=== PATIENT | male | born 2000 | race Caucasian/White ===

== ENCOUNTER 2019-05-23 18:32 | Emergency (ER) | payer OTHER, SELFPAY ==
[2019-05-23 19:24] VITALS: BP 171/118; PULSE 101; RESP 18; TEMP 36.5; O2SAT 98; BMI 59.3
--- NOTE | 2019-05-23 19:29 | HMH.EDUTC ---
[facility] [place] Disposition Clinical Impression: Influenza, Vomiting and diarrhea Disposition: Home, Self-Care Condition on Discharge: Good Instructions: How to Avoid a Cold or Flu, Influenza, Diarrhea, DI for Influenza -- Adult, DI for Vomiting -- Adult Additional Instructions: ? Start Tamiflu today if you are going to take it. Discussed risk and possible benefits. ? Lots of rest ? Increase Fluids water, Gatorade, powerade, pedialyte,if /toddler/child ? Alternate Tylenol and / or ibuprofen as discussed for fever, aches, chills x 24 hours without medication for symptoms ? Follow up IMMEDIATELY with your family doctor for new or worsening Symptoms OR no noticeable improvement over the next 48-72 hours, 911 for difficulty or breathing ? You or your child area contagious until no fever, aches, chills for 24 hours with medication for symptoms Prescriptions: Ondansetron [Zofran 4mg ODT] 4 mg PO Q8HP PRN #20 tab.rapdis PRN Reason: Nausea Transmission Status: Received by [facility] Oseltamivir Phosphate [Tamiflu 75mg Capsule] 75 mg PO BID #10 cap Transmission Status: Received by [facility] Referrals: Jairo Hahn MD [Primary Care Provider] - As needed Time of Disposition: 19:56 Medical Decision Making - Federico Inquiry Pt receiving controlled substance: No Federico was queried for this patient: No Vital Signs: 05/23/19 19:24 05/23/19 20:00 Temperature 97.7 F Temperature Source Oral Pulse Rate [Radial] 101 H 90 Respiratory Rate 18 Blood Pressure [Right Arm] 171/118 H 166/93 H Blood Pressure Mean [Right Arm] 135 117 Blood Pressure Source [Right Arm] Automatic Cuff Blood Pressure Position [Right Arm] Sitting 02 Sat by Pulse Oximetry 98 99 Oxygen Delivery Method Room Air - Lab Data Lab results reviewed: Yes: I reviewed the patient's lab results. Lab Results 05/23/19 19:11: Influenza Type A Ag Positive A, Influenza Type B Ag Negative - Reevaluation(s) Time: 19:54 Reevaluation #1: No vomiting after medication, States that nausea improved no diarrhea since arrival [facility] [place] HPI - General Stated complaint: v/d Time Seen by Provider: 05/23/19 19:29 Mode of Arrival: Ambulatory Source of Information: Patient Limitations: No Limitations Description of Symptoms (Recalled from Triage Doc. by RN): VOMITING, DIARRHEA HEENT Symptoms (Recalled from RN notes): No Resp Symptoms (Recalled from RN notes): No Skin Symptoms (Recalled from RN notes): No MS Symptoms (Recalled from RN notes): No Functional Status (Recalled from RN notes): WNL - History of Present Illness Provider Complaint: Patient states that he has been having vomiting and diarrhea body aches, chills and feeling ill States that he thought he may have had the flu a couple weeks ago State that son had the flu and now he has been having body aches, chills vomiting and diarrhea since last night - Related Data Previous Rx's Medication Instructions Recorded Ondansetron [Zofran 4mg ODT] 4 mg PO Q8HP PRN #20 tab.rapdis 05/23/19 Oseltamivir Phosphate [Tamiflu 75 mg PO BID #10 cap 05/23/19 75mg Capsule] Allergies Allergy/AdvReac Type Severity Reaction Status Date / Time No Known Allergies Allergy Verified 07/09/18 19:42 - Worker's Comp Is this a Worker's Comp case?: No [facility] History - Hepatitis A Screen Drug use history?: No High risk sexual behaviors?: No History of sexually transmitted infection?: No Currently employed?: No Childcare worker?: No Do you have indoor plumbing?: Yes Do you have electricity?: Yes Attestation statement:: This patient has been screened for Hepatitis A risk factors. I have reviewed the patient's past medical history: Yes Medical History: Reports:: MRSA Denies:: Diabetes Mellitus Type 1, Diabetes Mellitus Type 2 Laterality Cases: Bilateral: Myringotomy (Ear Tubes), Tonsillectomy - Social History Alcohol Intake: never Occupational Status: unemployed Housing: house
[2019-05-23 19:38] LABS: UTC Influenza A Antigen Positive (Negative); UTC Influenza B Antigen Negative (Negative)
[2019-05-23 20:00] VITALS: BP 166/93; PULSE 90; O2SAT 99
[2019-05-23 20:23] VITALS: BP 166/93; PULSE 90; RESP 18; TEMP 36.5; O2SAT 99
== END 2019-05-23 20:25 | disposition home or self-care (01) ==
PROVIDERS: Emergency Provider Nurse Practitioner; PCP Family Medicine
DX: J10.1 Influenza due to other identified influenza virus with other respiratory manifestations (principal)
CPT/HCPCS: 87804; 96372; 99202

== ENCOUNTER 2025-04-21 20:46 | Emergency (ER) | payer BC, OTHER, SELFPAY ==
[2025-04-21 21:15] VITALS: BP 167/100; PULSE 100; RESP 20; TEMP 36.7; O2SAT 95; BMI 53.2
--- NOTE | 2025-04-21 21:21 | PC.NURSE ---
Pt awake alert and oriented Skin pink warm and dry Resp full and easy Specch clear and appropriate IV site without redness and edema. Abd rounded and soft +bowel sounds x 4
--- NOTE | 2025-04-21 21:22 | CT_ITS ---
PROCEDURE INFORMATION: Exam: CT Abdomen And Pelvis With Contrast Exam date and time: 04/21/2025 9:29 PM Age: 24 years old Clinical indication: Abdominal pain; Epigastric; Additional info: Epigastric/ruq pain, cholecystitis? TECHNIQUE: Imaging protocol: Computed tomography of the abdomen and pelvis with contrast. Radiation optimization: All CT scans at this facility use at least one of these dose optimization techniques: automated exposure control; mA and/or kV adjustment per patient size (includes targeted exams where dose is matched to clinical indication); or iterative reconstruction. Contrast material: ISOVUE; Contrast volume: 75 ml; Contrast route: IV; COMPARISON: CT - ABDPELWO CT abdomen pelvis wo con 07/09/2018 7:59 PM FINDINGS: Liver: Fatty liver and hepatomegaly Gallbladder and biliary ducts: Normal. No calcified stones. No ductal dilation. Pancreas: Normal. No ductal dilation. Spleen: Normal. No splenomegaly. Adrenal glands: Normal. No mass. Kidneys and ureters: Normal. No hydronephrosis. Stomach and bowel: Unremarkable. No obstruction. No mucosal thickening. Appendix: No evidence of appendicitis. Intraperitoneal space: Unremarkable. No free air. No significant fluid collection. Vasculature: Unremarkable. No abdominal aortic aneurysm. Lymph nodes: Unremarkable. No enlarged lymph nodes. Urinary bladder: Unremarkable as visualized. Reproductive: Unremarkable as visualized. Bones/joints: Unremarkable. No acute fracture. Soft tissues: Unremarkable. IMPRESSION: No acute findings.
--- NOTE | 2025-04-21 21:24 | HMH.EDGENADL ---
Discharge Plan Disposition Patient Disposition: Home, Self-Care Prescriptions Prescriptions: New ondansetron HCl 4 mg tablet 4 mg PO Q8H PRN (Reason: nausea and vomiting) 5 Days Qty: 30 0RF No Action oseltamivir 75 MG capsule 75 mg PO BID Qty: 10 0RF ondansetron 4 MG tablet,disintegrating 4 mg PO Q8HP PRN (Reason: Nausea) Qty: 20 0RF Referrals Follow up/Referrals: Jairo Hahn MD [Primary Care Provider, Medical] - See instructions Vincent Milton MD [Staff Physician, General Surgery] - See instructions Activity Restrictions/Add. Instructions Additional Instructions/Restrictions: Consider following up with your PCP or our general surgery team for further evaluation of your recurrent abdominal pain episodes. Please follow-up with your primary care provider. Please return to the emergency department if you develop any new or worsening symptoms or become concerned for your health. Clinical Impressions Clinical Impression: Acute upper abdominal pain, Nausea & vomiting Instructions Patient Instructions: DI for Acute Abdominal Pain Print Language Print Language: Bahraini Discharge ED Provider: Yves Mayer General Adult HPI <Joey Sidhu MD - Last Filed: 04/21/25 23:49> General Chief complaint: Abdominal Pain Stated complaint: abdominal pain Time Seen by Provider: 04/21/25 21:17 Mode of Arrival: Ambulatory Source of Information: Patient Description of Symptoms (Recalled from ER Triage Doc. by RN): diffuse abdoiminal pain since 1700 History of Present Illness HPI narrative: Solomon Savage is a 24-year-old male presents to the emergency department for complaints of right upper quadrant epigastric pain that began yesterday and worsened today. He reports nausea but no vomiting. Reports chronic intermittent diarrhea but no changes to his stool recently. No urinary symptoms or changes in his urine color. He describes the pain is constant. He noted that he was told that he had gallbladder issues in the past that flared up after he ate [employer]. He did eat fast food today and noted that his pain got worse for short time after. He is taking medication to help with gas pains but states that that has not helped. Related Data Previous Rx's ?Medication ?Instructions ?Recorded ondansetron 4 mg disintegrating 4 mg PO Q8HP PRN Nausea ##20 05/23/19 tablet oseltamivir 75 mg capsule 75 mg PO BID #10 caps 05/23/19 ondansetron HCl 4 mg tablet 4 mg PO Q8H PRN nausea and 04/22/25 vomiting 5 days #30 tabs Allergies Allergy/AdvReac Type Severity Reaction Status Date / Time No Known Allergies Allergy Verified 07/09/18 19:42 [facility] <Joey Sidhu MD - Last Filed: 04/21/25 23:49> [facility] Disclaimer: The information contained in this section may have been updated after the patient was seen, as this information can be updated by other users. Social History Smoking Status: Never smoker alcohol intake: never current occupational status: unemployed Travel in the last 8 weeks?: None household members: family housing: house Have you lived/traveled outside US in past 30 days?: No Contact w/someone who lives/traveled outside US past 30 days?: No Exposure to someone with infectious disease in past 14 days?: No Do you have a fever (greater than 100.4 F or 38 C)?: No Have you tested positive for COVID-19?: No Exposed to someone with COVID-19 in past 14 days?: No Do you have a sore throat?: No Do you have a cough?: No Do you have any weakness?: No Do you have any diarrhea?: No Are you experiencing any unusual bleeding?: No Do you have any muscle aches/pain?: No Do you have any abdominal pain?: No Are you experiencing loss of taste or smell?: No <Joey Sidhu MD - Last Filed: 04/21/25 23:49> ROS Obtained: Yes Systems reviewed as appropriate & no additional complaints except as documented Physical Exam <Joey Sidhu MD - Last Filed: 04/21/25 23:49> General General appearance: alert and obese Comment: Ill but non toxic appearing Head Head exam: atraumatic Eye Eye exam: Present normal appearance ENT ENT exam: Present normal external ear exam Neck Neck exam: Present full ROM Chest Chest inspection: Present symmetric chest wall rise Respiratory Respiratory exam: Present normal lung sounds bilaterally; Absent respiratory distress, wheezes or stridor Cardiovascular Cardiovascular exam: Present regular rate and normal rhythm Abdominal Exam Abdominal exam: Present soft, tenderness (epigastric and RUQ) and guarding (RUQ); Absent distention or rigidity exam: Present deferred Extremities Exam Extremities exam: Present normal inspection Back Exam Back exam: Present normal inspection Neurological Exam Neurological exam: Present alert and oriented X3 Psychiatric Psychiatric exam: Present normal affect Skin Skin exam: Present warm and dry Medical Decision Making <Joey Sidhu MD - Last Filed: 04/21/25 23:49> Medical Records Screening: Per USPSTF and CDC recommendations, given the prevalence of disease in our region, it is our hospital?s policy to screen for HIV and viral Hepatitis for all patients aged 18 and over and those with ongoing risk factors. Federico Inquiry Pt receiving controlled substance: No Vital Signs: 04/21/25 21:15 04/21/25 23:14 04/21/25 23:15 Temperature 98.1 F Temperature Source Oral Pulse Rate 74 Pulse Rate [Left Radial] 100 H Respiratory Rate 20 Blood Pressure 167/117 H Blood Pressure [Right Arm] 167/100 H Blood Pressure Mean 127 Blood Pressure Mean [Right Arm] 122 Blood Pressure Source [Right Arm] Automatic Cuff Blood Pressure Position [Right Arm] Sitting 02 Sat by Pulse Oximetry 95 96 Oxygen Delivery Method Room Air Lab Data Lab Results 04/21/25 21:15: Urine Color Yellow, Urine Appearance Clear, Urine pH 6.0, Ur Specific Mcarthur >= 1.030, Urine Protein Negative, Urine Glucose (UA) Negative, Urine Ketones Negative, Urine Blood Negative, Urine Nitrate Negative, Urine Bilirubin Negative, Urine Urobilinogen 0.2, Ur Leukocyte Esterase Negative, Urine RBC 3-5, Urine WBC 10-20, Ur Squamous Epith Cells Occasional, Urine Bacteria Trace, Urine Mucus 4+ 04/21/25 21:20: WBC 10.4, RBC 5.29, Hgb 15.9, Hct 46.5, MCV 87.9, MCH 30.1, MCHC 34.2, RDW 12.6, Plt Count 283, MPV 10.2, Neut % (Auto) 59.2, Lymph % (Auto) 30.3, Hardin % (Auto) 7.9, Eos % (Auto) 1.8, Baso % (Auto) 0.6, Neut # (Auto) 6.2, Lymph # (Auto) 3.2, Hardin # (Auto) 0.8, Eos # (Auto) 0.2, Baso # (Auto) 0.1, PT 11.4, INR 1.03, Sodium 144, Potassium 4.3, Chloride 104, Carbon Dioxide 26, Anion Gap 18.3 H, BUN 13, Creatinine 1.00, Estimated Creat Clear 119, Estimated GFR 90, Est GFR ( Amer) 109, Glucose 111 H, Calcium 9.5, Total Bilirubin 0.5, AST 25, ALT 28, Alkaline Phosphatase 68, Total Protein 7.9, Albumin 4.6, Globulin 3.3 H, Albumin/Globulin Ratio 1.4, Lipase 47, HCV Ab LEYDA w/Rflx PCR Qn Negative, HIV Ag/Ab Combo Qual Negative 04/21/25 21:50: Lactate 0.8 04/21/25 21:20 04/21/25 21:20 Orders (Tests/Meds): ED MEDICATIONS Generic Name Dose Route Start Last Admin Trade Name Freq PRN Reason Stop Dose Admin Sodium Chloride 10 ml 04/21/25 21:32 04/21/25 21:33 Sodium Chloride 0.9% 10ml Syr (Rad Only) IV 05/21/25 21:31 10 ml NEEDED PRN Administration Maintain IV Site Sodium Chloride 8 ml 04/21/25 22:55 Sodium Chloride 0.9% 10ml Vial IV 05/21/25 22:54 NEEDED PRN dilute pepcid Discontinued Medications Generic Name Dose Route Start Last Admin Trade Name Freq PRN Reason Stop Dose Admin Belladonna Alkaloids 60 ml 04/21/25 23:29 04/21/25 23:45 Belladonna Alkaloids 60 Ml Ml PO 04/21/25 23:30 60 ml ONCE ONE Administration Famotidine 20 mg 04/21/25 22:55 04/21/25 23:10 Famotidine 20mg/2ml Vial IV 04/21/25 22:56 20 mg ONCE ONE Administration Lactated Ringer's 1,000 mls @ 999 mls/hr 04/21/25 23:44 04/21/25 23:49 Lactated Ringer's 1000 Ml Bag IV 04/22/25 00:44 999 mls/hr .Q1H1M ONE Administration Iopamidol 75 ml 04/21/25 21:32 04/21/25 21:33 Iopamidol-370 (76%);100ml Bottle IV 04/21/25 21:33 75 ml ONCE ONE Administration Ketorolac Tromethamine 15 mg 04/21/25 22:55 04/21/25 23:10 Ketorolac 15mg/Ml Vial IV 04/21/25 22:56 15 mg ONCE ONE Administration Morphine Sulfate 4 mg 04/21/25 21:22 04/21/25 21:44 Morphine 4mg/Ml Syringe IV 04/21/25 21:23 4 mg ONCE ONE Administration Ondansetron HCl 4 mg 04/21/25 21:22 04/21/25 21:44 Ondansetron 4mg/2ml Vial IV 04/21/25 21:23 4 mg ONCE ONE Administration Promethazine HCl 12.5 mg 04/21/25 23:37 04/21/25 23:44 Promethazine Hcl 25mg/Ml 1ml Vial IV 04/21/25 23:38 12.5 mg ONCE ONE Administration Sodium Chloride 25 ml 04/21/25 23:37 04/21/25 23:44 Sodium Chloride 0.9% 25ml Bag IV 04/21/25 23:38 25 ml ONCE ONE Administration ORDERS Category Date Time Status CT abdomen pelvis w con Stat Cat Scan 04/21/25 21:22 Completed POCUS Point of Care (ER Only) Stat Exams 04/21/25 21:22 Completed CBC w/Auto Diff [Complete Blood Count Auto Diff] Stat Lab 04/21/25 21:20 Completed CMP [Comprehensive Metabolic Panel] Stat Lab 04/21/25 21:20 Completed HIV Combo Routine Lab 04/21/25 21:20 Completed Hepatitis C Ab Qual. W/ RFX Routine Lab 04/21/25 21:20 Completed Lactic Acid Stat Lab 04/21/25 21:50 Completed Lipase Stat Lab 04/21/25 21:20 Completed PT INR [Prothrombin Time INR] Stat Lab 04/21/25 21:20 Completed UA [Urinalysis and Microscopic] Stat Lab 04/21/25 21:15 Completed Urine Culture Stat Micro 04/21/25 21:15 Received ECG Data Tracing #1: I reviewed this ECG and interpreted as documented below: Sinus tachycardia. No ST elevation or depression. QTc normal at 393 Medical Decision Narrative: Solomon Savage is a 24-year-old male presents to the emergency department for complaints of right upper quadrant epigastric pain that began yesterday and worsened today. He reports nausea but no vomiting. Reports chronic intermittent diarrhea but no changes to his stool recently. No urinary symptoms or changes in his urine color. He describes the pain is constant. He noted that he was told that he had gallbladder issues in the past that flared up after he ate [employer]. He did eat fast food today and noted that his pain got worse for short time after. He is taking medication to help with gas pains but states that that has not helped. On arrival, patient is hypertensive but vital signs otherwise within normal limits. Afebrile. Physical exam, stated above, revealed nontoxic-appearing male in no respiratory distress. Abdomen is tender in the epigastric and right upper quadrant with some mild guarding in the right upper quadrant but abdomen is otherwise soft and nonperitoneal take. Cardiopulmonary exam without wheezing, rales or rhonchi. No murmur or rub. Differential diagnosis includes, but is not limited to: Acute cholecystitis, biliary colic, peptic ulcer disease, gastroesophageal reflux disease, acute pancreatitis, gastritis, among others. The most morbid conditions were considered and workup was based on these. [id number] right upper quadrant ultrasound was attempted, however due to body habitus, was not able to obtain views of the gallbladder. EKG without evidence of ischemia. See interpretation above. R workup shows no leukocytosis, no anemia, platelets within normal limits. Coagulation studies within normal limits. Electrolytes within norm limits. No JYOTI. Liver enzymes and bilirubin within normal limits. Lipase normal at 47. Urinalysis with 10-20 white blood cells and trace bacteria but leukocyte esterase negative and nitrite negative. Patient does not have any urinary symptoms and I do not feel that this represents a urinary tract infection. CT imaging was interpreted by me personally. No enlargement of the gallbladder, no pericholecystic fluid. No common bile duct dilation. No other acute findings within the abdomen or pelvis. See radiology report for details. Patient was initially treated with 4 mg of IV morphine and 4 mg of IV Zofran. He did have 1 episode of vomiting here in the emergency department. On reassessment, he stated that morphine had not improved his pain. Administer 15 mg of IV Toradol and 20 mg of IV Pepcid and attempt a GI cocktail. Patient did have an additional episode of vomiting and will give 12.5 mg of IV Phenergan as well as 1 L lactated ringer. At this time, patient's care transferred to the oncoming physician, Dr. Mayer, pending symptomatic improvement. I do feel that symptomatology could be explained by biliary stasis/biliary colic and would benefit from outpatient GI follow-up and possible HIDA scan. <Yves Mayer MD - Last Filed: 04/22/25 00:51> Vital Signs: 04/21/25 21:15 04/21/25 23:14 04/21/25 23:15 Temperature 98.1 F Temperature Source Oral Pulse Rate 74 Pulse Rate [Left Radial] 100 H Respiratory Rate 20 Blood Pressure 167/117 H Blood Pressure [Right Arm] 167/100 H Blood Pressure Mean 127 Blood Pressure Mean [Right Arm] 122 Blood Pressure Source [Right Arm] Automatic Cuff Blood Pressure Position [Right Arm] Sitting 02 Sat by Pulse Oximetry 95 96 Oxygen Delivery Method Room Air Lab Data Lab Results 04/21/25 21:15: Urine Color Yellow, Urine Appearance Clear, Urine pH 6.0, Ur Specific Mcarthur >= 1.030, Urine Protein Negative, Urine Glucose (UA) Negative, Urine Ketones Negative, Urine Blood Negative, Urine Nitrate Negative, Urine Bilirubin Negative, Urine Urobilinogen 0.2, Ur Leukocyte Esterase Negative, Urine RBC 3-5, Urine WBC 10-20, Ur Squamous Epith Cells Occasional, Urine Bacteria Trace, Urine Mucus 4+ 04/21/25 21:20: WBC 10.4, RBC 5.29, Hgb 15.9, Hct 46.5, MCV 87.9, MCH 30.1, MCHC 34.2, RDW 12.6, Plt Count 283, MPV 10.2, Neut % (Auto) 59.2, Lymph % (Auto) 30.3, Hardin % (Auto) 7.9, Eos % (Auto) 1.8, Baso % (Auto) 0.6, Neut # (Auto) 6.2, Lymph # (Auto) 3.2, Hardin # (Auto) 0.8, Eos # (Auto) 0.2, Baso # (Auto) 0.1, PT 11.4, INR 1.03, Sodium 144, Potassium 4.3, Chloride 104, Carbon Dioxide 26, Anion Gap 18.3 H, BUN 13, Creatinine 1.00, Estimated Creat Clear 119, Estimated GFR 90, Est GFR ( Amer) 109, Glucose 111 H, Calcium 9.5, Total Bilirubin 0.5, AST 25, ALT 28, Alkaline Phosphatase 68, Total Protein 7.9, Albumin 4.6, Globulin 3.3 H, Albumin/Globulin Ratio 1.4, Lipase 47, HCV Ab LEYDA w/Rflx PCR Qn Negative, HIV Ag/Ab Combo Qual Negative 04/21/25 21:50: Lactate 0.8 Orders (Tests/Meds): ED MEDICATIONS Generic Name Dose Route Start Last Admin Trade Name Freq PRN Reason Stop Dose Admin Sodium Chloride 10 ml 04/21/25 21:32 04/21/25 21:33 Sodium Chloride 0.9% 10ml Syr (Rad Only) IV 05/21/25 21:31 10 ml NEEDED PRN Administration Maintain IV Site Sodium Chloride 8 ml 04/21/25 22:55 Sodium Chloride 0.9% 10ml Vial IV 05/21/25 22:54 NEEDED PRN dilute pepcid Discontinued Medications Generic Name Dose Route Start Last Admin Trade Name Freq PRN Reason Stop Dose Admin Belladonna Alkaloids 60 ml 04/21/25 23:29 04/21/25 23:45 Belladonna Alkaloids 60 Ml Ml PO 04/21/25 23:30 60 ml ONCE ONE Administration Famotidine 20 mg 04/21/25 22:55 04/21/25 23:10 Famotidine 20mg/2ml Vial IV 04/21/25 22:56 20 mg ONCE ONE Administration Lactated Ringer's 1,000 mls @ 999 mls/hr 04/21/25 23:44 04/21/25 23:49 Lactated Ringer's 1000 Ml Bag IV 04/22/25 00:44 999 mls/hr .Q1H1M ONE Administration Iopamidol 75 ml 04/21/25 21:32 04/21/25 21:33 Iopamidol-370 (76%);100ml Bottle IV 04/21/25 21:33 75 ml ONCE ONE Administration Ketorolac Tromethamine 15 mg 04/21/25 22:55 04/21/25 23:10 Ketorolac 15mg/Ml Vial IV 04/21/25 22:56 15 mg ONCE ONE Administration Morphine Sulfate 4 mg 04/21/25 21:22 04/21/25 21:44 Morphine 4mg/Ml Syringe IV 04/21/25 21:23 4 mg ONCE ONE Administration Ondansetron HCl 4 mg 04/21/25 21:22 04/21/25 21:44 Ondansetron 4mg/2ml Vial IV 04/21/25 21:23 4 mg ONCE ONE Administration Promethazine HCl 12.5 mg 04/21/25 23:37 04/21/25 23:44 Promethazine Hcl 25mg/Ml 1ml Vial IV 04/21/25 23:38 12.5 mg ONCE ONE Administration Sodium Chloride 25 ml 04/21/25 23:37 04/21/25 23:44 Sodium Chloride 0.9% 25ml Bag IV 04/21/25 23:38 25 ml ONCE ONE Administration ORDERS Category Date Time Status CT abdomen pelvis w con Stat Cat Scan 04/21/25 21:22 Completed POCUS Point of Care (ER Only) Stat Exams 04/21/25 21:22 Completed CBC w/Auto Diff [Complete Blood Count Auto Diff] Stat Lab 04/21/25 21:20 Completed CMP [Comprehensive Metabolic Panel] Stat Lab 04/21/25 21:20 Completed HIV Combo Routine Lab 04/21/25 21:20 Completed Hepatitis C Ab Qual. W/ RFX Routine Lab 04/21/25 21:20 Completed Lactic Acid Stat Lab 04/21/25 21:50 Completed Lipase Stat Lab 04/21/25 21:20 Completed PT INR [Prothrombin Time INR] Stat Lab 04/21/25 21:20 Completed UA [Urinalysis and Microscopic] Stat Lab 04/21/25 21:15 Completed Urine Culture Stat Micro 04/21/25 21:15 Received Medical Decision Narrative: Solomon Savage is a 24-year-old male presents to the emergency department for complaints of right upper quadrant epigastric pain that began yesterday and worsened today. He reports nausea but no vomiting. Reports chronic intermittent diarrhea but no changes to his stool recently. No urinary symptoms or changes in his urine color. He describes the pain is constant. He noted that he was told that he had gallbladder issues in the past that flared up after he ate [employer]. He did eat fast food today and noted that his pain got worse for short time after. He is taking medication to help with gas pains but states that that has not helped. On arrival, patient is hypertensive but vital signs otherwise within normal limits. Afebrile. Physical exam, stated above, revealed nontoxic-appearing male in no respiratory distress. Abdomen is tender in the epigastric and right upper quadrant with some mild guarding in the right upper quadrant but abdomen is otherwise soft and nonperitoneal take. Cardiopulmonary exam without wheezing, rales or rhonchi. No murmur or rub. Differential diagnosis includes, but is not limited to: Acute cholecystitis, biliary colic, peptic ulcer disease, gastroesophageal reflux disease, acute pancreatitis, gastritis, among others. The most morbid conditions were considered and workup was based on these. [id number] right upper quadrant ultrasound was attempted, however due to body habitus, was not able to obtain views of the gallbladder. EKG without evidence of ischemia. See interpretation above. R workup shows no leukocytosis, no anemia, platelets within normal limits. Coagulation studies within normal limits. Electrolytes within norm limits. No JYOTI. Liver enzymes and bilirubin within normal limits. Lipase normal at 47. Urinalysis with 10-20 white blood cells and trace bacteria but leukocyte esterase negative and nitrite negative. Patient does not have any urinary symptoms and I do not feel that this represents a urinary tract infection. CT imaging was interpreted by me personally. No enlargement of the gallbladder, no pericholecystic fluid. No common bile duct dilation. No other acute findings within the abdomen or pelvis. See radiology report for details. Patient was initially treated with 4 mg of IV morphine and 4 mg of IV Zofran. He did have 1 episode of vomiting here in the emergency department. On reassessment, he stated that morphine had not improved his pain. Administer 15 mg of IV Toradol and 20 mg of IV Pepcid and attempt a GI cocktail. Patient did have an additional episode of vomiting and will give 12.5 mg of IV Phenergan as well as 1 L lactated ringer. At this time, patient's care transferred to the oncoming physician, Dr. Mayer, pending symptomatic improvement. I do feel that symptomatology could be explained by biliary stasis/biliary colic and would benefit from outpatient GI follow-up and possible HIDA scan. Moreno FIGUEROA: I assumed care of the patient at the time of handoff from the prior provider. On reassessment patient was sleeping comfortably and reports significant symptomatic improvement. He was discharged with prescription for Zofran and instructed follow-up with PCP/GI/general surgery for further assessment. Return precautions given. Critical Care <Joey Sidhu MD - Last Filed: 04/21/25 23:49> Critical Care Time Critical Care Time: No
[2025-04-21 21:26] LABS: Microscopic, Urine URINE MICROSCOPIC (MICROSCOPIC)
[2025-04-21 21:28] LABS: Color,Urine YELLOW (Yellow); Glucose,Urine (UA) Negative (Negative); Ketones,Urine Negative (Negative); Leukocyte Esterase,Urine Negative (Negative); PH,Urine 6.0 (5.0-8.5); Protein,Urine Negative (Negative); Specific Gravity, Urine >= 1.030 (1.005-1.030); Urobilinogen,Urine 0.2 EU/dl (0.2)
--- OUTSIDE RECORDS SUMMARY | 2025-04-21 21:28 | XMS_ITS | Clinical Summary ---
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 Not on file 01/2023 Does Anyone Keep You from Co ntacting Others or Doint Things Outside the Home? Not on file 03/05/2023 Physical Sign of Abuse Present Not on file 1 Housing Stability Answer Date Recorded Current Living Arrangements Not on file 01/2023 Potentially Unsafe Housing Conditions Not on jesus alberto e 03/05/2023 Family and Community Support Answer Benson e Recorded Help with Day-to-Day Activities Not on file 03/05/2023 Lonely or Isolated Not on file 03/05/2023 Employment Answer Date Recorded Do you want help finding or keeping work or a jessica b? Not on file 03/05/2023 Disabilities Answer Date Recorded Concentrating, Remembering, or Making Decisions Difficulty Not on file 03/05/2023 Doing Errands Independently Difficulty Not on fi le 03/05/2023 Education Answer Date Recorded Help with school or training? Not on file Preferred Language Not on file 03/05/2023 Sex and Gender Information Value Date Recorded Sex Assigned at Not on file Legal Sex Male 11:20 AM EDT Gender Identity Not on file Sexual Orientation Not on file Last Filed Vital Signs Vital Sign Reading Time Taken Comments Blood Pressure - - Pulse 84 05/03/2019 3:51 PM EST Temperature 36.7 C (98.1 F) 05/03/2019 3:51 PM EST Respiratory Rate 16 05/03/2019 3:51 PM EST Oxygen Saturation 99% 05/03/2019 3:51 PM EST Inhaled Oxygen Concentration - - Weight 194 kg (428 lb) 05/03/2019 3:51 PM EST Height 180.3 cm (5' 11 ) 05/03/2019 3:51 PM EST Body Mass Index 59.69 05/03/2019 3:51 PM EST Plan of Treatment Health Maintenance Due Date Last Done Comments TDAP/TD VACCINES (1 - Tdap) 2017 ANNUAL PHYSICAL 05/03/2019 HEPATITIS C SCREENING 05/03/2019 INFLUENZA VACCINE 12/26/2024 Pneumococcal Vaccine 0-49 Aged Out No longer eligible based on patient's age to complete this topic Insurance Care Teams [employer]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
[2025-04-21 21:29] LABS: Hematocrit 46.5 % (42.0-52.0); Hemoglobin 15.9 g/dL (14.1-18.0); Immature Granulocytes % 0.2 %; Mean Corpuscular HGB Conc 34.2 g/dL (31.8-35.4); Mean Corpuscular Hemoglobin 30.1 pg (27.0-31.2); Mean Corpuscular Volume 87.9 fl (80-94); Nucleated Red Blood Cells % 0 %; Platelet Count 283 K/mm3 (142-424); Red Blood Count 5.29 M/mm3 (4.60-6.20); Red Cell Distribution Width-SD 40.7 fL; White Blood Count 10.4 K/mm3 (4.8-10.8)
[2025-04-21] MEDS: IOPAMIDOL-370 (76%);100ML BOTTLE 75 ML IV (21:33)
[2025-04-21] MEDS: SODIUM CHLORIDE 0.9% 10ML SYR (RAD ONLY) 10 ML IV (21:33)
[2025-04-21 21:34] LABS: Bilirubin,Urine Negative (Negative)
--- NOTE | 2025-04-21 21:34 | PC.NURSE ---
Pt in CT scan
[2025-04-21 21:35] LABS: Albumin Level 4.6 g/dl (3.5-5.0); Chloride 104 mmol/L (98-107); Potassium 4.3 mmoL/L (3.5-5.1); Sodium 144 mmol/L (136-145)
[2025-04-21 21:37] LABS: Alanine Aminotransferase 28 U/L (12-78); Alkaline Phosphatase 68 U/L (38-126); Aspartate Amino Transferase 25 U/L (17-59); Bilirubin,Total 0.5 mg/dl (0.2-1.3); Blood Urea Nitrogen 13 mg/dl (9-20); Creatinine Clearance Estimated 119 mL/min (50-200); Creatinine,Serum 1.00 mg/dl (0.66-1.25); Estimated Glomerular Filt Rate 90 ml/min (>60); GFR (African American) 109 ML/MIN (>60)
[2025-04-21 21:38] LABS: Albumin/Globulin Ratio 1.4 (1.1-1.8); Anion Gap 18.3 mEq/L (5-15); Calcium 9.5 mg/dl (8.4-10.2); Carbon Dioxide 26 mmol/L (22.0-30.0); Globulin 3.3 g/dL (1.3-3.2); Glucose 111 mg/dl (74-100); Lipase 47 U/L (23-300); Total Protein,Serum 7.9 g/dl (6.3-8.2)
[2025-04-21 21:40] LABS: INR 1.03 (0.9-1.1); Prothrombin Time 11.4 seconds (10.1-12.5)
--- NOTE | 2025-04-21 21:43 | ECG_ITS ---
APPROVED REPORT Exam: Resting ECG HR:100 bpm ECG Measurements Heart Rate 100 AXES DC 153 P 53 QRSd 100 QRS 48 QT 336 T 41 QTc 393 Conclusion SINUS TACHYCARDIA POSSIBLE INFERIOR MYOCARDIAL INFARCTION , PROBABLY OLD [30 ms Q WAVE IN II/aVF] ABNORMAL RHYTHM ECG Electronically signed by : COOPER SILVA, 04/23/2025 13:52:12
[2025-04-21] MEDS: MORPHINE 4MG/ML SYRINGE 4 MG IV (21:44)
[2025-04-21] MEDS: ONDANSETRON 4MG/2ML VIAL 4 MG IV (21:44)
[2025-04-21 21:49] LABS: Bacteria,Urine Trace /lpf; Mucus,Urine 4+ /lpf; Squamous Epithelial Cell,Urine Occasional #/hpf (0-5)
[2025-04-21 22:56] LABS: Hepatitis C Ab Qual. W/ RFX NEGATIVE (Negative)
[2025-04-21] MEDS: FAMOTIDINE 20MG/2ML VIAL 20 MG IV (23:10)
[2025-04-21] MEDS: KETOROLAC 15MG/ML VIAL 15 MG IV (23:10)
[2025-04-21 23:14] VITALS: BP 167/117
[2025-04-21 23:15] VITALS: PULSE 74; O2SAT 96
[2025-04-21] MEDS: SODIUM CHLORIDE 0.9% 25ML BAG 25 ML IV (23:44)
[2025-04-21] MEDS: PROMETHAZINE HCL 25MG/ML 1ML VIAL 12.5 MG IV (23:44)
[2025-04-21] MEDS: BELLADONNA ALKALOIDS 60 ML ML PO (23:45)
[2025-04-21] MEDS: LACTATED RINGERS 1000ML 1,000 ML 999 ML IV (23:49)
--- NOTE | 2025-04-22 00:36 | PC.NURSE ---
Pt sleeping when undisturbed
[2025-04-22 00:50] VITALS: BP 140/90; PULSE 88; RESP 20; TEMP 36.7; O2SAT 96
== END 2025-04-22 00:56 | disposition home or self-care (01) ==
PROVIDERS: Student in an Organized Health Care Education/Training Program; Emergency Provider Emergency Medicine; PCP Family Medicine
DX: R10.11 Right upper quadrant pain (principal); R11.2 Nausea with vomiting, unspecified; R19.7 Diarrhea, unspecified
CPT/HCPCS: 74177; 80053; 81001; 83605; 83690; 85025; 85610; 86803; 87086; 87389; 93005; 96361; 96374; 96375; 99285; J1308; J1885; J2270; J2405; J2550; J7120; Q9967

== ENCOUNTER 2025-05-17 16:06 | Emergency (ER) | payer BC, OTHER, SELFPAY ==
[2025-05-17] VITALS (9 sets, daily range): BP systolic 145–146; BP diastolic 65–90; PULSE 115–129; RESP 18–20; TEMP 36.9–37; O2SAT 94–98; BMI 44.3
--- OUTSIDE RECORDS SUMMARY | 2025-05-17 16:16 | XMS_ITS | Clinical Summary ---
[facility] Organization 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
[2025-05-17] MEDS: ONDANSETRON 4MG/2ML VIAL 4 MG IV (16:26)
--- NOTE | 2025-05-17 16:32 | ED_ITS ---
Discharge Plan Disposition Chief Complaint: Nausea/Vomiting/Diarrhea Prescriptions Prescriptions: New ondansetron 4 mg tablet,disintegrating 4 mg PO Q6H PRN (Reason: nausea and vomiting) Qty: 10 0RF Referrals Follow up/Referrals: Jairo Hahn MD [Primary Care Provider, Medical] - See instructions Clinical Impressions Clinical Impression: Gastroenteritis Instructions Patient Instructions: DI for Diarrhea and Traveler's Diarrhea in Adults, DI for Diarrhea and Traveler's Diarrhea in Children, DI for Nausea in Adults, DI for Nausea in Children Print Language Print Language: Bulgarian Discharge ED Provider: Yaritza Saenz General Adult HPI <JOSE ANTONIO Gerardo - Last Filed: 05/17/25 18:40> General Chief complaint: Nausea/Vomiting/Diarrhea Stated complaint: V/D Time Seen by Provider: 05/17/25 16:10 Mode of Arrival: Wheelchair Source of Information: Patient and Parent(s) Description of Symptoms (Recalled from ER Triage Doc. by RN): pt presents to ED with father for n/v/d. pt reports symptoms began this am. no blood noted in stool or emesis. pt reports weakness since he began having nausea and vomitting. pt reports no belly pain. History of Present Illness HPI narrative: 24-year-old male presents to the emergency department accompanied by his father for nausea vomiting diarrhea, that started early this morning, no other family ember's have similar symptoms, admits to subjective fever chills, no cough congestion shortness of breath no chest pain no sore throat, nonbloody nonbilious, no constipation, he endorses poor p.o. intake, abdominal cramps at times, but no overt abdominal pain, denies any urinary symptomatology, patient is a current everyday tobacco user (smokeless tobacco), denies any alcohol or other drug use, has otherwise no real relevant past medical history takes no other medications at home. Initial triage vitals noted for tachycardia otherwise unremarkable. Of note, patient did eat at a new restaurant last night, and believes this may be attributed to his symptomatology. Please note that above description of symptoms, in this electronic medical record under categorization of recalled from ER triage doctor by RN are reflective of an initial nursing assessment, however, is not reflective of my full history and physical exam that was personally taken and clarified. Consequentially, this preceding description of symptoms, which may include the patient's categorized chief complaint in the EMR, do not reflect my personal clinical impression, and the ultimate description of history of present illness and patient stated complaints should be deferred to this section of the note. Unless stated otherwise or congruent with this section of the note, additional signs, symptoms, or incongruence should be interpreted as inaccurate with my clinical impression. Onset (ago): hour(s) Related Data Previous Rx's ?Medication ?Instructions ?Recorded ondansetron 4 mg disintegrating 4 mg PO Q6H PRN nausea and 05/17/25 tablet vomiting #10 tabs Allergies Allergy/AdvReac Type Severity Reaction Status Date / Time No Known Allergies Allergy Verified 07/09/18 19:42 <Yaritza Saenz MD - Last Filed: 05/17/25 20:05> History of Present Illness HPI narrative: 24-year-old male presents to the emergency department accompanied by his father for nausea vomiting diarrhea, that started early this morning, no other family ember's have similar symptoms, admits to subjective fever chills, no cough congestion shortness of breath no chest pain no sore throat, nonbloody nonbilious, no constipation, he endorses poor p.o. intake, abdominal cramps at times, but no overt abdominal pain, denies any urinary symptomatology, patient is a current everyday tobacco user (smokeless tobacco), denies any alcohol or other drug use, has otherwise no real relevant past medical history takes no other medications at home. Initial triage vitals noted for tachycardia otherwise unremarkable. Of note, patient did eat at a new restaurant last night, and believes this may be attributed to his symptomatology. Please note that above description of symptoms, in this electronic medical record under categorization of recalled from ER triage doctor by RN are reflective of an initial nursing assessment, however, is not reflective of my full history and physical exam that was personally taken and clarified. Consequentially, this preceding description of symptoms, which may include the patient's categorized chief complaint in the EMR, do not reflect my personal clinical impression, and the ultimate description of history of present illness and patient stated complaints should be deferred to this section of the note. Unless stated otherwise or congruent with this section of the note, additional signs, symptoms, or incongruence should be interpreted as inaccurate with my clinical impression. PFSH <JOSE ANTONIO Gerardo - Last Filed: 05/17/25 18:40> [facility] Disclaimer: The information contained in this section may have been updated after the patient was seen, as this information can be updated by other users. Social History Smoking Status: Never smoker alcohol intake: never current occupational status: unemployed Travel in the last 8 weeks?: None household members: family housing: house Have you lived/traveled outside [place] in past 30 days?: No Contact w/someone who lives/traveled outside US past 30 days?: No Exposure to someone with infectious disease in past 14 days?: No Do you have a fever (greater than 100.4 F or 38 C)?: No Have you tested positive for COVID-19?: No Exposed to someone with COVID-19 in past 14 days?: No Do you have a sore throat?: No Do you have a cough?: No Do you have any weakness?: No Do you have any diarrhea?: Yes Are you experiencing any unusual bleeding?: No Do you have any muscle aches/pain?: No Do you have any abdominal pain?: No Are you experiencing loss of taste or smell?: No <JOSE ANTONIO Gerardo - Last Filed: 05/17/25 18:40> ROS Obtained: Yes All systems reviewed & no additional complaints except as documented Physical Exam <JOSE ANTONIO Gerardo - Last Filed: 05/17/25 18:40> General General appearance: alert and in no apparent distress Head Head exam: atraumatic and normocephalic Eye Eye exam: Present PERRL and EOMI ENT ENT exam: Present mucous membranes moist Neck Neck exam: Present normal inspection Chest Chest inspection: Present normal inspection and symmetric chest wall rise Respiratory Respiratory exam: Present normal lung sounds bilaterally; Absent respiratory distress, wheezes or stridor Cardiovascular Cardiovascular exam: Present normal rhythm and tachycardia Abdominal Exam Abdominal exam: Present soft and tenderness; Absent guarding, rebound or rigidity Abdominal tenderness: Present mild Extremities Exam Extremities exam: Present normal inspection Neurological Exam Neurological exam: Present alert and oriented X3 Psychiatric Psychiatric exam: Present normal affect Skin Skin exam: Present warm and dry Medical Decision Making <JOSE ANTONIO Gerardo - Last Filed: 05/17/25 18:40> Medical Records Medical records reviewed: Yes I reviewed the patient's medical records. Screening: Per USPSTF and CDC recommendations, given the prevalence of disease in our region, it is our hospital?s policy to screen for HIV and viral Hepatitis for all patients aged 18 and over and those with ongoing risk factors. Federico Inquiry Pt receiving controlled substance: No Federico was queried for this patient: No Vital Signs: 05/17/25 16:12 05/17/25 16:15 05/17/25 16:30 Temperature 98.4 F Temperature Source Oral Pulse Rate 129 H 121 H Pulse Rate [Left Radial] 129 H Respiratory Rate 20 Blood Pressure 146/90 H Blood Pressure [Right Arm] 146/90 H Blood Pressure Mean [Right Arm] 108 02 Sat by Pulse Oximetry 97 96 94 L Oxygen Delivery Method Room Air 05/17/25 17:06 05/17/25 17:30 05/17/25 18:00 Temperature Temperature Source Pulse Rate 122 H 121 H 126 H Pulse Rate [Left Radial] Respiratory Rate Blood Pressure Blood Pressure [Right Arm] Blood Pressure Mean [Right Arm] 02 Sat by Pulse Oximetry 96 94 L 95 Oxygen Delivery Method 05/17/25 18:30 05/17/25 19:09 Temperature Temperature Source Pulse Rate 121 H 115 H Pulse Rate [Left Radial] Respiratory Rate 18 Blood Pressure 146/65 H Blood Pressure [Right Arm] Blood Pressure Mean [Right Arm] 02 Sat by Pulse Oximetry 95 98 Oxygen Delivery Method Room Air Lab Data Lab results reviewed: Yes I reviewed the patient's lab results. Lab Results 05/17/25 16:19: WBC 11.8 H, RBC 6.13, Hct 55.0 H, MCV 89.7, MCH 29.7, MCHC 33.1, RDW 12.9, Plt Count 270, MPV 10.5 H, Neut % (Auto) 91.3 H, Lymph % (Auto) 3.1 L, Moore % (Auto) 5.1, Eos % (Auto) 0.1, Baso % (Auto) 0.2, Neut # (Auto) 10.8 H, L ymph # (Auto) 0.4 L, Moore # (Auto) 0.6, Eos # (Auto) 0.0, Baso # (Auto) 0.0, Total Counted 100, Neutrophils % (Manual) 94 H, Lymphocytes % (Manual) 2 L, Monocytes % (Manual) 4, Platelet Estimate Normal, RBC Morphology Normal, Sodium 140, Potassium 4.4, Chloride 105, Carbon Dioxide 22, Anion Gap 17.4 H, BUN 17, Creatinine 1.10, Estimated Creat Clear 102, Estimated GFR 81, Est GFR ( Amer) 98, Glucose 147 H, Lactate 1.1, Calcium 10.0, Magnesium 1.7, Total Bilirubin 0.8, AST 32, ALT 33, Alkaline Phosphatase 79, Total Protein 8.9 H, A lbumin 5.4 H, Globulin 3.5 H, Albumin/Globulin Ratio 1.5, Lipase 19 L, Plasma/Serum Alcohol < 10 05/17/25 17:55: Urine Color Yellow, Urine Appearance Clear, Urine pH 5.5, Ur Specific [place] 1.020, Urine Protein Negative, Urine Glucose (UA) Negative, Urine Ketones Trace, Urine Blood Negative, Urine Nitrate Negative, Urine Bilirubin Negative, Urine Urobilinogen 0.2, Ur Leukocyte Esterase Negative, Urine RBC None, Urine WBC None, Ur Squamous Epith Cells None, Urine Bacteria None, Urine Opiates Screen Negative, Urine Methadone Screen Negative, Ur Barbituates Screen Negative, Ur Phencyclidine Scrn Negative, Ur Amphetamines Screen Negative, U Benzodiazepines Scrn Negative, Urine Cocaine Screen Negative, U Marijuana (THC) Screen Negative 05/17/25 16:19 05/17/25 16:19 Orders (Tests/Meds): ED MEDICATIONS Generic Name Dose Route Start Last Admin Trade Name Freq PRN Reason Stop Dose Admin Sodium Chloride 10 ml 05/17/25 17:00 05/17/25 17:02 Sodium Chloride 0.9% 10ml Syr (Rad Only) IV 06/16/25 16:59 10 ml NEEDED PRN Administration Maintain IV Site Discontinued Medications Generic Name Dose Route Start Last Admin Trade Name Freq PRN Reason Stop Dose Admin Lactated Ringer's 1,000 mls @ 999 mls/hr 05/17/25 16:37 05/17/25 16:50 Lactated Ringer's 1000 Ml Bag IV 05/17/25 17:37 999 mls/hr .Q1H1M ONE Administration Lactated Ringer's 1,000 mls @ 999 mls/hr 05/17/25 18:13 05/17/25 18:39 Lactated Ringer's 1000 Ml Bag IV 05/17/25 19:13 999 mls/hr .Q1H1M ONE Administration Iopamidol 75 ml 05/17/25 17:00 05/17/25 17:02 Iopamidol-370 (76%);100ml Bottle IV 05/17/25 17:01 75 ml ONCE ONE Administration Ondansetron HCl 4 mg 05/17/25 16:25 05/17/25 16:26 Ondansetron 4mg/2ml Vial IV 05/17/25 16:26 4 mg ONCE ONE Administration ORDERS Category Date Time Status CT abdomen pelvis w con Stat Cat Scan 05/17/25 16:36 Completed Complete Blood Count Auto Diff Stat Lab 05/17/25 16:19 Results Comprehensive Metabolic Panel Stat Lab 05/17/25 16:19 Completed Diarrhea 23 Panel, PCR Stat Lab 05/17/25 16:49 Ordered Drug Screen,Urine Stat Lab 05/17/25 17:55 Completed Ethanol [Ethyl Alcohol] Stat Lab 05/17/25 16:19 Completed Lactic Acid Stat Lab 05/17/25 16:19 Completed Lipase Stat Lab 05/17/25 16:19 Completed Magnesium Stat Lab 05/17/25 16:19 Completed Urinalysis and Microscopic Stat Lab 05/17/25 17:55 Completed Medical Decision Narrative: 24-year-old male presents to the emergency department with abdominal pain nausea vomiting diarrhea for less than 24 hours, differential diagnose include but not limited to, appendicitis, pancreatitis, diverticulitis, volvulus, cholecystitis, choledocholithiasis, cholelithiasis, gastroenteritis, colitis, ileitis, among others. Will obtain basic laboratory studies, EKG, CT and pelvis with contrast, diarrhea panel, UDS, urinalysis lactic acid lipase magnesium level, will give 1 L LR IV and will give 4 mg IV Zofran for nausea. CMP is unremarkable, no lactic acidosis. Mild leukocytosis at 11.8, otherwise unremarkable CBC I reviewed the patient's CT and pelvis with contrast along the corresponding radiologic report, moderate loss of intervertebral disc space with injury of change involving L5-S1 left upper quadrant multiple prominent mesenteric nodes measuring greater than 5 mm in short axis, can be seen with mild infectious or inflammatory enteritis. Examination of the patient at approximately 6:10 PM, patient is resting comfortably, still has some tachycardia thus will give additional 1 L LR IV, will attempt p.o. intake to with oral fluids UA is grossly unremarkable UDS negative. I discussed this patient's case with the attending , at shift change, she will be assuming amended the patient's care/workup, disposition is pending p.o. challenge, and reexamination of the patient after additional 1 L LR IV. I will prescribe the patient p.o. Zofran 4 mg sublingual for nausea and vomiting, patient is most likely gastroenteritis, pending stool panel, if patient is unable to give, will defer to attending physician, could forego stool panel as we will most likely not military exchange wireless manager. <Yaritza Saenz MD - Last Filed: 05/17/25 20:05> Vital Signs: 05/17/25 16:12 05/17/25 16:15 05/17/25 16:30 Temperature 98.4 F Temperature Source Oral Pulse Rate 129 H 121 H Pulse Rate [Left Radial] 129 H Respiratory Rate 20 Blood Pressure 146/90 H Blood Pressure [Right Arm] 146/90 H Blood Pressure Mean [Right Arm] 108 02 Sat by Pulse Oximetry 97 96 94 L Oxygen Delivery Method Room Air 05/17/25 17:06 05/17/25 17:30 05/17/25 18:00 Temperature Temperature Source Pulse Rate 122 H 121 H 126 H Pulse Rate [Left Radial] Respiratory Rate Blood Pressure Blood Pressure [Right Arm] Blood Pressure Mean [Right Arm] 02 Sat by Pulse Oximetry 96 94 L 95 Oxygen Delivery Method 05/17/25 18:30 05/17/25 19:09 Temperature Temperature Source Pulse Rate 121 H 115 H Pulse Rate [Left Radial] Respiratory Rate 18 Blood Pressure 146/65 H Blood Pressure [Right Arm] Blood Pressure Mean [Right Arm] 02 Sat by Pulse Oximetry 95 98 Oxygen Delivery Method Room Air Lab Data Lab Results 05/17/25 16:19: WBC 11.8 H, RBC 6.13, Hct 55.0 H, MCV 89.7, MCH 29.7, MCHC 33.1, RDW 12.9, Plt Count 270, MPV 10.5 H, Neut % (Auto) 91.3 H, Lymph % (Auto) 3.1 L, Moore % (Auto) 5.1, Eos % (Auto) 0.1, Baso % (Auto) 0.2, Neut # (Auto) 10.8 H, L ymph # (Auto) 0.4 L, Moore # (Auto) 0.6, Eos # (Auto) 0.0, Baso # (Auto) 0.0, Total Counted 100, Neutrophils % (Manual) 94 H, Lymphocytes % (Manual) 2 L, Monocytes % (Manual) 4, Platelet Estimate Normal, RBC Morphology Normal, Sodium 140, Potassium 4.4, Chloride 105, Carbon Dioxide 22, Anion Gap 17.4 H, BUN 17, Creatinine 1.10, Estimated Creat Clear 102, Estimated GFR 81, Est GFR ( Amer) 98, Glucose 147 H, Lactate 1.1, Calcium 10.0, Magnesium 1.7, Total Bilirubin 0.8, AST 32, ALT 33, Alkaline Phosphatase 79, Total Protein 8.9 H, A lbumin 5.4 H, Globulin 3.5 H, Albumin/Globulin Ratio 1.5, Lipase 19 L, Plasma/Serum Alcohol < 10 05/17/25 17:55: Urine Color Yellow, Urine Appearance Clear, Urine pH 5.5, Ur Specific [place] 1.020, Urine Protein Negative, Urine Glucose (UA) Negative, Urine Ketones Trace, Urine Blood Negative, Urine Nitrate Negative, Urine Bilirubin Negative, Urine Urobilinogen 0.2, Ur Leukocyte Esterase Negative, Urine RBC None, Urine WBC None, Ur Squamous Epith Cells None, Urine Bacteria None, Urine Opiates Screen Negative, Urine Methadone Screen Negative, Ur Barbituates Screen Negative, Ur Phencyclidine Scrn Negative, Ur Amphetamines Screen Negative, U Benzodiazepines Scrn Negative, Urine Cocaine Screen Negative, U Marijuana (THC) Screen Negative Orders (Tests/Meds): ED MEDICATIONS Generic Name Dose Route Start Last Admin Trade Name Freq PRN Reason Stop Dose Admin Sodium Chloride 10 ml 05/17/25 17:00 05/17/25 17:02 Sodium Chloride 0.9% 10ml Syr (Rad Only) IV 06/16/25 16:59 10 ml NEEDED PRN Administration Maintain IV Site Discontinued Medications Generic Name Dose Route Start Last Admin Trade Name Freq PRN Reason Stop Dose Admin Lactated Ringer's 1,000 mls @ 999 mls/hr 05/17/25 16:37 05/17/25 16:50 Lactated Ringer's 1000 Ml Bag IV 05/17/25 17:37 999 mls/hr .Q1H1M ONE Administration Lactated Ringer's 1,000 mls @ 999 mls/hr 05/17/25 18:13 05/17/25 18:39 Lactated Ringer's 1000 Ml Bag IV 05/17/25 19:13 999 mls/hr .Q1H1M ONE Administration Iopamidol 75 ml 05/17/25 17:00 05/17/25 17:02 Iopamidol-370 (76%);100ml Bottle IV 05/17/25 17:01 75 ml ONCE ONE Administration Ondansetron HCl 4 mg 05/17/25 16:25 05/17/25 16:26 Ondansetron 4mg/2ml Vial IV 05/17/25 16:26 4 mg ONCE ONE Administration ORDERS Category Date Time Status CT abdomen pelvis w con Stat Cat Scan 05/17/25 16:36 Completed Complete Blood Count Auto Diff Stat Lab 05/17/25 16:19 Results Comprehensive Metabolic Panel Stat Lab 05/17/25 16:19 Completed Diarrhea 23 Panel, PCR Stat Lab 05/17/25 16:49 Ordered Drug Screen,Urine Stat Lab 05/17/25 17:55 Completed Ethanol [Ethyl Alcohol] Stat Lab 05/17/25 16:19 Completed Lactic Acid Stat Lab 05/17/25 16:19 Completed Lipase Stat Lab 05/17/25 16:19 Completed Magnesium Stat Lab 05/17/25 16:19 Completed Urinalysis and Microscopic Stat Lab 05/17/25 17:55 Completed Medical Decision Narrative: 24-year-old male presents to the emergency department with abdominal pain nausea vomiting diarrhea for less than 24 hours, differential diagnose include but not limited to, appendicitis, pancreatitis, diverticulitis, volvulus, cholecystitis, choledocholithiasis, cholelithiasis, gastroenteritis, colitis, ileitis, among others. Will obtain basic laboratory studies, EKG, CT and pelvis with contrast, diarrhea panel, UDS, urinalysis lactic acid lipase magnesium level, will give 1 L LR IV and will give 4 mg IV Zofran for nausea. CMP is unremarkable, no lactic acidosis. Mild leukocytosis at 11.8, otherwise unremarkable CBC I reviewed the patient's CT and pelvis with contrast along the corresponding radiologic report, moderate loss of intervertebral disc space with injury of change involving L5-S1 left upper quadrant multiple prominent mesenteric nodes measuring greater than 5 mm in short axis, can be seen with mild infectious or inflammatory enteritis. Examination of the patient at approximately 6:10 PM, patient is resting comfortably, still has some tachycardia thus will give additional 1 L LR IV, will attempt p.o. intake to with oral fluids UA is grossly unremarkable UDS negative. I discussed this patient's case with the attending , at shift change, she will be assuming amended the patient's care/workup, disposition is pending p.o. challenge, and reexamination of the patient after additional 1 L LR IV. I will prescribe the patient p.o. Zofran 4 mg sublingual for nausea and vomiting, patient is most likely gastroenteritis, pending stool panel, if patient is unable to give, will defer to attending physician, could forego stool panel as we will most likely not military exchange wireless manager. On repeat evaluation the patient continues to tolerate po. Improvement in tachycardia. Agreeable with discharge at this time. I was consulted by the RNEEE, and we discussed the complexity of problems being addressed. I approved the treatment and management plan for this patient's care in the emergency department, thus performing a substantial portion of the medical decision making. Yaritza Saenz MD Critical Care <JOSE ANTONIO Gerardo - Last Filed: 05/17/25 18:40> Critical Care Time Critical Care Time: No
--- NOTE | 2025-05-17 16:36 | CT_ITS ---
PROCEDURE INFORMATION: Exam: CT Abdomen And Pelvis With Contrast Exam date and time: 05/17/2025 5:01 PM Age: 24 years old Clinical indication: Nausea; Additional info: Abd pain, nausea, vomiting, diarrhea TECHNIQUE: Imaging protocol: Computed tomography of the abdomen and pelvis with contrast. Radiation optimization: All CT scans at this facility use at least one of these dose optimization techniques: automated exposure control; mA and/or kV adjustment per patient size (includes targeted exams where dose is matched to clinical indication); or iterative reconstruction. Contrast material: ISOVUE; Contrast volume: 75 ml; Contrast route: IV; COMPARISON: CT ABDOMEN PELVIS W CON 04/21/2025 9:29 PM FINDINGS: Liver: Normal. No mass. Gallbladder and biliary ducts: Normal. No calcified stones. No ductal dilation. Pancreas: Normal. No ductal dilation. Spleen: Normal. No splenomegaly. Adrenal glands: Normal. No mass. Kidneys and ureters: Normal. No hydronephrosis. Stomach and bowel: Unremarkable. No obstruction. No mucosal thickening. Appendix: No evidence of appendicitis. Intraperitoneal space: Unremarkable. No free air. No significant fluid collection. Vasculature: Unremarkable. No abdominal aortic aneurysm. Lymph nodes: Left upper quadrant multiple prominent mesenteric nodes measuring greater than 5 mm in short axis can be seen with mild infectious or inflammatory enteritis. Urinary bladder: Unremarkable as visualized. Reproductive: Unremarkable as visualized. Bones/joints: Moderate loss of intervertebral disc space with degenerative changes involving L5-S1. Soft tissues: Normal. IMPRESSION: Moderate loss of intervertebral disc space with degenerative changes involving L5-S1. Left upper quadrant multiple prominent mesenteric nodes measuring greater than 5 mm in short axis can be seen with mild infectious or inflammatory enteritis.
[2025-05-17 16:43] LABS: Hematocrit 55.0 % (42.0-52.0); Immature Granulocytes % 0.2 %; Mean Corpuscular HGB Conc 33.1 g/dL (31.8-35.4); Mean Corpuscular Hemoglobin 29.7 pg (27.0-31.2); Mean Corpuscular Volume 89.7 fl (80-94); Nucleated Red Blood Cells % 0 %; Platelet Count 270 K/mm3 (142-424); Red Blood Count 6.13 M/mm3 (4.60-6.20); Red Cell Distribution Width-SD 42.1 fL; White Blood Count 11.8 K/mm3 (4.8-10.8)
[2025-05-17 16:44] LABS: Albumin Level 5.4 g/dl (3.5-5.0); Chloride 105 mmol/L (98-107)
[2025-05-17 16:45] LABS: Potassium 4.4 mmoL/L (3.5-5.1); Sodium 140 mmol/L (136-145)
[2025-05-17 16:47] LABS: Alanine Aminotransferase 33 U/L (12-78); Albumin/Globulin Ratio 1.5 (1.1-1.8); Alkaline Phosphatase 79 U/L (38-126); Anion Gap 17.4 mEq/L (5-15); Aspartate Amino Transferase 32 U/L (17-59); Bilirubin,Total 0.8 mg/dl (0.2-1.3); Blood Urea Nitrogen 17 mg/dl (9-20); Carbon Dioxide 22 mmol/L (22.0-30.0); Creatinine Clearance Estimated 102 mL/min (50-200); Creatinine,Serum 1.10 mg/dl (0.66-1.25); Estimated Glomerular Filt Rate 81 ml/min (>60); GFR (African American) 98 ML/MIN (>60); Globulin 3.5 g/dL (1.3-3.2); Total Protein,Serum 8.9 g/dl (6.3-8.2)
--- NOTE | 2025-05-17 16:47 | ECG_ITS ---
APPROVED REPORT Exam: Resting ECG HR:129 bpm ECG Measurements Heart Rate 129 AXES NE 169 P 36 QRSd 117 QRS 127 QT 297 T 69 QTc 373 Conclusion sinus tachycardia, no TETO, STD or t wave inversions concerning for ischemia Electronically signed by : Yaritza Saenz, 05/17/2025 18:04:22
[2025-05-17 16:48] LABS: Calcium 10.0 mg/dl (8.4-10.2); Glucose 147 mg/dl (74-100); Lipase 19 U/L (23-300); Magnesium 1.7 mg/dl (1.6-2.3)
[2025-05-17] MEDS: LACTATED RINGERS 1000ML 1,000 ML 999 ML IV ×2 (16:50→18:39)
[2025-05-17] MEDS: SODIUM CHLORIDE 0.9% 10ML SYR (RAD ONLY) 10 ML IV (17:02)
[2025-05-17] MEDS: IOPAMIDOL-370 (76%);100ML BOTTLE 75 ML IV (17:02)
[2025-05-17 17:23] LABS: RBC Morphology Normal; Total Cells Counted 100
[2025-05-17 18:06] LABS: Microscopic, Urine URINE MICROSCOPIC (MICROSCOPIC)
[2025-05-17 18:08] LABS: Bilirubin,Urine Negative (Negative); Color,Urine YELLOW (Yellow); Glucose,Urine (UA) Negative (Negative); Ketones,Urine TRACE (Negative); Leukocyte Esterase,Urine Negative (Negative); PH,Urine 5.5 (5.0-8.5); Protein,Urine Negative (Negative); Specific Gravity, Urine 1.020 (1.005-1.030); Urobilinogen,Urine 0.2 EU/dl (0.2)
[2025-05-17 18:19] LABS: Amphetamine/Metha Screen,Urine Negative ng/ml (<1000)
[2025-05-17 18:20] LABS: Barbiturates Screen,Urine Negative ng/ml (<200); Benzodiazepines Screen,Urine Negative ng/ml (<200)
[2025-05-17 18:22] LABS: Methadone Screen,Urine Negative ng/ml (<300)
[2025-05-17 18:23] LABS: Opiate Screen,Urine Negative ng/ml (<300); Phencyclidine Screen,Urine Negative ng/ml (<25)
[2025-05-17 20:10] LABS: Hemoglobin 18.3 g/dL (14.1-18.0)
--- NOTE | 2025-05-17 20:15 | ECG_ITS ---
APPROVED REPORT Exam: Resting ECG HR:119 bpm ECG Measurements Heart Rate 119 AXES NM 157 P 28 QRSd 98 QRS 83 QT 302 T 31 QTc 373 Conclusion SINUS TACHYCARDIA POSSIBLE INFERIOR MYOCARDIAL INFARCTION , PROBABLY OLD [30 ms Q WAVE IN II/aVF] No STEMI Electronically signed by : RENU WINKLER, 05/18/2025 05:57:02
== END 2025-05-17 20:32 | disposition home or self-care (01) ==
PROVIDERS: Physician Assistant; Emergency Provider Student in an Organized Health Care Education/Training Program; PCP Family Medicine
DX: K52.9 Noninfective gastroenteritis and colitis, unspecified (principal)
CPT/HCPCS: 74177; 80053; 80307; 80320; 81001; 83605; 83690; 83735; 85007; 85025; 85027; 93005; 96361; 96374; 99285; J2405; J7120; Q9967